=== PATIENT | male | born 1955 | race African-American/Black ===

== ENCOUNTER 2023-01-21 05:09 | Day surgery (SDC) | payer OTHER ==
[2023-01-17 14:29] VITALS: BMI 35.1
[2023-01-21] MEDS ORDERED: MIDAZOLAM HCL 2 MG/2 ML SINGLE DOSE VIAL ONE (10:52)
[2023-01-21] MEDS ORDERED: ONDANSETRON 4 MG/2 ML VIAL ONE (10:52)
[2023-01-21] MEDS ORDERED: FENTANYL CITRATE/PF 50 MCG/ML VIAL ONE (10:52)
[2023-01-21 15:04] VITALS: RESP 18; TEMP 97.6
[2023-01-21 15:06] VITALS: BP 117/64; PULSE 50
== END 2023-01-21 12:30 | disposition home or self-care (01) ==
LOC: JASU-SURG 05:09
PROVIDERS: ATTEND Urology
PROC: 0TF4XZZ Fragmentation in Left Kidney Pelvis, External Approach (ICD-10-PCS; principal; 2023-01-21 11:09)
DX: N20.0 Calculus of kidney (principal)

== ENCOUNTER 2024-09-14 05:31 | Day surgery (SDC) | payer OTHER ==
[2024-09-10 16:11] VITALS: BMI 35.1
[2024-09-14 12:26] VITALS: RESP 18
[2024-09-14] MEDS ORDERED: MIDAZOLAM HCL 2 MG/2 ML SINGLE DOSE VIAL ONE (15:01)
[2024-09-14 16:44] VITALS: BP 124/65; PULSE 53; TEMP 97.3
== END 2024-09-14 16:45 | disposition home or self-care (01) ==
LOC: JASU-SURG 05:31
PROVIDERS: ATTEND Urology
PROC: 0TF4XZZ Fragmentation in Left Kidney Pelvis, External Approach (ICD-10-PCS; principal; 2024-09-14 15:00)
DX: N20.0 Calculus of kidney (principal)